=== PATIENT | female | born 2000 | race Caucasian/White ===

== ENCOUNTER 2018-09-15 21:32 | Emergency (ER) | payer OTHER ==
[2018-09-15] MEDS ORDERED: SULFAMETHOXAZOLE/TRIMETHOPRIM 800-160 MG TABLET PO ONE (23:57)
[2018-09-15] MEDS ORDERED: IBUPROFEN 600 MG TABLET PO ONE (23:58)
[2018-09-15] MEDS ORDERED: ACETAMINOPHEN 325 MG TABLET PO ONE (23:58)
--- NOTE | 2018-09-16 | ER Document Report ---
ED General - General Chief Complaint: Cyst Stated Complaint: TAILBONE PAIN Time Seen by Provider: 09/15/18 22:33 Primary Care Provider: HEALTH,EMPLOYEE [ACTIVE STAFF] - Follow up as needed FRANCHESCA MAIER MD [ACTIVE STAFF] - Follow up in 1 week Notes: Patient is a 17-year-old female with a past medical history of recurrent pilonidal abscesses, presents with 4-5 days of progressively worsening swelling and pain to her right gluteal cleft. Patient describes the pain as being a throbbing, aching, constant pain worsened by touching the area or trying to sit down. States this feels exactly the same as when she has had pilonidal abscesses in the past. No fever or constitutional symptoms. Nothing improves the pain. States that she knows she is supposed to follow-up with surgery for definitive management but has not been able to do so at this point. Has not seen her primary doctor regarding today's concerns. TRAVEL OUTSIDE OF THE [place] IN LAST 30 DAYS: No - Related Data Allergies/Adverse Reactions: No Known Allergies Allergy (Unverified 09/15/18 21:34) Past Medical History - General Information source: Patient - Social History Smoking Status: Never Smoker Chew tobacco use (# tins/day): No Frequency of alcohol use: None Drug Abuse: None Lives with: Parents Family History: Reviewed & Not Pertinent Patient has suicidal ideation: No Patient has homicidal ideation: No Renal/ Medical History: Denies: Hx Peritoneal Dialysis Review of Systems - Review of Systems Notes: Constitutional: Negative for fever. HENT: Negative for sore throat. Eyes: Negative for visual changes. Cardiovascular: Negative for chest pain. Respiratory: Negative for shortness of breath. Gastrointestinal: Negative for abdominal pain, vomiting or diarrhea. Genitourinary: Negative for dysuria. Musculoskeletal: Negative for back pain. Skin: Positive for abscess to the right gluteal cleft Neurological: Negative for headaches, weakness or numbness. 10 point ROS negative except as marked above and in HPI. Physical Exam - Vital signs Vitals: Temp Pulse BP Pulse Ox 99.7 F 121 H 135/79 H 97 09/15/18 21:50 09/15/18 21:50 09/15/18 21:50 09/15/18 21:50 Interpretation: Hypertensive, Tachycardic Notes: PHYSICAL EXAMINATION: GENERAL: Appears moderately uncomfortable but in no acute distress HEAD: Atraumatic, normocephalic. EYES: sclera anicteric, conjunctiva are normal. ENT: Moist mucous membranes. NECK: Normal range of motion LUNGS: Normal work of breathing Abdomen: No focal tenderness, rebound or guarding HEART: 2+ radial pulses bilaterally EXTREMITIES: no pitting or edema. No cyanosis. NEUROLOGICAL: No focal neurological deficits. Moves all extremities spontaneously and on command. PSYCH: Anxious SKIN: Warm, Dry, normal turgor, there is a abscess approximately 1 x 2 cm in size of the external skin to the right gluteal cleft Course - Re-evaluation Re-evalutation: 09/15/18 23:58 Patient presents with a pilonidal abscess. This was incised and drained with expression of at least 20 cc of purulent drainage. The wound was copiously irrigated, debrided and packed thereafter. Patient was started on trimethoprim sulfamethoxazole 2 tabs twice daily for the next 1 week. I have emphasized to the patient and her mother the bedside that this is not definitive treatment, the patient does need to follow-up in the surgical clinic for excision of the c ystic structure to prevent recurrence. Patient's vitals otherwise within normal limits. No indication for labs or imaging. No indication for hospitalization or IV antibiotics. At this time will discharge with return precautions and follow-up recommendations. Verbal discharge instructions given a the bedside and opportunity for questions given. Medication warnings reviewed. Patient is in agreement with this plan and has verbalized understanding of return precautions and the need for primary care follow-up in the next 24-72 hours. - Vital Signs Vital signs: Temp Pulse Resp BP Pulse Ox 97.3 F 103 H 20 138/76 H 97 09/16/18 00:28 09/16/18 00:28 09/16/18 00:28 09/16/18 00:28 09/16/18 00:28 Procedures - Incision and Drainage Right Buttock Type: Complex Anesthetic type: 1% Lidocaine mL's of anesthetic: 5 Blade size: 11 I&D procedure: Chlorprep applied, Iodoform packing placed, Sterile dressing applied Incision Method: Incision made by scalpel Amount/type of drainage: 20 cc of purulent drainage Discharge - Discharge Clinical Impression: Pilonidal abscess Condition: Good Disposition: HOME, SELF-CARE Additional Instructions: You were seen for an abscess that required drainage. Remove the packing if it has not fallen out on its own within the next 48 hours. For your pain: Take ibuprofen 600 mg and acetaminophen 1000 mg every 6 hours together as needed for pain. Clean area with soap and water twice daily. Dress the area after each cleaning. Please return if you develop fever, vomiting, the pain at the site worsens, you notice spreading redness from the area, or you have any other symptoms that are concerning to you. Prescriptions: Sulfamethoxazole/Trimethoprim [Bactrim Ds Tablet] 2 tab PO BID #28 tablet Forms: Return to Work Referrals: HEALTH,EMPLOYEE [ACTIVE STAFF] - Follow up as needed FRANCHESCA MAIER MD [ACTIVE STAFF] - Follow up in 1 week
[2018-09-16] MEDS ORDERED: ONDANSETRON 4 MG TAB.RAPDIS ONE (00:08)
[2018-09-16 00:37] VITALS: BP 138/76
== END 2018-09-16 00:28 | disposition home or self-care (01) ==
LOC: ER 21:32
PROC: 0H98XZZ Drainage of Buttock Skin, External Approach (ICD-10-PCS; principal; 2018-09-15)
DX: L05.01 Pilonidal cyst with abscess (principal); R22.2 Localized swelling, mass and lump, trunk; F41.9 Anxiety disorder, unspecified
CPT/HCPCS: 99283; 10060; A6266; S0119

== ENCOUNTER 2019-10-07 14:14 | Emergency (ER) | payer OTHER ==
[2019-10-07 14:25] VITALS: BP 136/76
[2019-10-07] MEDS ORDERED: ONDANSETRON 4 MG TAB.RAPDIS PO ONE (14:25)
--- NOTE | 2019-10-07 14:25 | ER Document Report ---
ED Medical Screen (RME) - General Chief Complaint: Rectal Abscess Stated Complaint: PAIN ON TAILBONE Time Seen by Provider: 10/07/19 14:19 Primary Care Provider: FABRICIO CARVER MD [Primary Care Provider] - Follow up as needed Mode of Arrival: Ambulatory Information source: Patient Notes: 18-year-old female presents to ED for complaint of pilonidal cyst. She states she has had it I&D times in the past. She states she does know that she needs to go to a surgeon at some point and get it removed but she cannot do it at this time due to the virus that is going around. She states it is getting painful she has been trying to treated at home but needs it assessed and treated at this time. She is alert oriented respirations regular nonlabored speaking in full sentences. She does not smoke, drink, or use illicit drugs. 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 I have greeted and performed a rapid initial assessment of this patient. A comprehensive ED assessment and evaluation of the patient, analysis of test results and completion of medical decision making process will be conducted by an additional ED providers. TRAVEL OUTSIDE OF THE [place] IN LAST 30 DAYS: No - Related Data Allergies/Adverse Reactions: No Known Allergies Allergy (Unverified 09/15/18 21:34) Past Medical History Renal/ Medical History: Denies: Hx Peritoneal Dialysis Physical Exam - Vital signs Vitals: Temp Pulse Resp BP Pulse Ox 98.2 F 107 H 18 144/90 H 100 10/07/19 14:19 10/07/19 14:19 10/07/19 14:19 10/07/19 14:19 10/07/19 14:19 Course - Vital Signs Vital signs: Temp Pulse Resp BP Pulse Ox 98.2 F 107 H 18 144/90 H 100 10/07/19 14:19 10/07/19 14:19 10/07/19 14:19 10/07/19 14:19 10/07/19 14:19 Doctor's Discharge - Discharge Referrals: FABRICIO CARVER MD [Primary Care Provider] - Follow up as needed
[2019-10-07] MEDS ORDERED: OXYCODONE-ACETAMINOPHEN 5-325 MG TABLET PO ONE (14:32)
[2019-10-07] MEDS ORDERED: LIDOCAINE 1%/EPINEPHRINE INJ 20 ML VIAL INJ ONE (14:33)
--- NOTE | 2019-10-07 14:38 | ER Document Report ---
ED General - General Chief Complaint: Rectal Abscess Stated Complaint: PAIN ON TAILBONE Time Seen by Provider: 10/07/19 14:19 Primary Care Provider: FABRICIO CARVER MD [Primary Care Provider] - Follow up as needed KEVIN NEGRON MD [ACTIVE STAFF] - Follow up as needed Mode of Arrival: Ambulatory Notes: CHIEF COMPLAINT: Pilonidal cyst HPI: 18-year-old female with a history of pilonidal cyst and abscess with multiple previous drainage presenting for tenderness over the pilonidal region over the last 3 to 4 days without fever. No rectal pain. ROS: See HPI - all other systems were reviewed and are otherwise negative Constitutional: no fever Integumentary: no rash, positive cyst Allergy: no hives Musculoskeletal: no extremity pain or swelling MEDICATIONS: I agree with the patient medications as charted by the RN. ALLERGIES: I agree with the allergies as charted by the RN. PAST MEDICAL HISTORY/PAST SURGICAL HISTORY: Reviewed and agree as charted by RN. SOCIAL HISTORY: Reviewed and agree as charted by RN. FAMILY HISTORY: No significant familial comorbid conditions directly related to patient complaint EXAM: Reviewed vital signs as charted by RN. CONSTITUTIONAL: Alert and oriented and responds appropriately to questions. Well-appearing; well-nourished, mild distress secondary to pain HEAD: Normocephalic; atraumatic EYES: Conjunctivae clear, sclerae non-icteric ENT: normal nose; no rhinorrhea; moist mucous membranes NECK: Supple without meningismus CARD: symmetric distal pulses RESP: Normal chest excursion without splinting or tachypnea ABD/GI: Normal bowel sounds; non-distended; soft, non-tender, no rebound, no guarding; no palpable organomegaly or masses. BACK: The back appears normal and is non-tender to palpation, there is no CVA tenderness EXT: Normal ROM in all joints; non-tender to palpation; no cyanosis, no effusions, no edema SKIN: Normal color for age and race; warm; dry; good turgor; raised mildly indurated and fluctuant region in the left pilonidal space without overlying erythema NEURO: Moves all extremities equally; Motor and sensory function intact PSYCH: The patient's mood and manner are appropriate. Grooming and personal hygiene are appropriate. MDM: 18-year-old female with a pilonidal cyst. We will incise and drain the area, plan to pack the area refer to surgery for definitive management TRAVEL OUTSIDE OF THE [place] IN LAST 30 DAYS: No - Related Data Allergies/Adverse Reactions: No Known Allergies Allergy (Unverified 09/15/18 21:34) Past Medical History - General Information source: Patient - Social History Smoking Status: Never Smoker Family History: Reviewed & Not Pertinent Patient has suicidal ideation: No Patient has homicidal ideation: No Renal/ Medical History: Denies: Hx Peritoneal Dialysis Physical Exam - Vital signs Vitals: Temp Pulse Resp BP Pulse Ox 98.2 F 107 H 18 144/90 H 100 10/07/19 14:19 10/07/19 14:19 10/07/19 14:19 10/07/19 14:19 10/07/19 14:19 Course - Vital Signs Vital signs: Temp Pulse Resp BP Pulse Ox 98.2 F 107 H 18 136/76 H 100 10/07/19 14:19 10/07/19 14:19 10/07/19 14:19 10/07/19 14:24 10/07/19 14:19 Procedures - Incision and Drainage Left Medial Buttock Time completed: 14:53 Type: Simple, Single Anesthetic type: 1% Lidocaine w/epi mL's of anesthetic: 2 Blade size: 11 I&D procedure: Chlorprep applied, Iodoform packing placed Incision Method: Incision made by scalpel Amount/type of drainage: 20 purulent Discharge - Discharge Clinical Impression: Pilonidal abscess Condition: Stable Disposition: HOME, SELF-CARE Instructions: Abscess ([facility]) Additional Instructions: 1. packing out in 2-3 days 2. follow up with your primary care provider or the surgical clinic for further evaluation in 2-3 days 3. medicines as prescribed, take Motrin for pain, Montrose for severe pain 4. return sooner for any worsening condition, increasing redness or onset of fever 5. apply warm compresses to the wound area 2-3 times daily Prescriptions: Hydrocodone/Acetaminophen [[place] 5-325 mg Tablet] 1 tab PO Q4 PRN #15 tablet PRN Reason: Referrals: FABRICIO CARVER MD [Primary Care Provider] - Follow up as needed KEVIN NEGRON MD [ACTIVE STAFF] - Follow up as needed
== END 2019-10-07 15:02 | disposition home or self-care (01) ==
LOC: ER 14:14
DX: L05.01 Pilonidal cyst with abscess (principal)
CPT/HCPCS: 99283; 10080; S0119; J3490